=== PATIENT | male | born 1995 | race Caucasian/White ===

== ENCOUNTER 2017-09-02 18:25 | Emergency (ER) | payer SELFPAY ==
[~2017-09-02 18:25] MED LIST: ACCUNEB 0.1.25 MG/1 INH; AMOXICILLIN500 M2 PO; AUGMENTIN 400 M1 CTB PO; BROMFED DM; CELEXA; CETIRIZINE10 MG PO; CLARITIN10 MG PO; DELTASONE10 MG PO; HYDROCODONE BIT1 T11 PO; KEFLEX500 MG PO; KENALOG 0.1%80 GM T; MEDROL DOSEPAK4 MG PO; NASONEX0.05 MG/AC; NKHM; PROAIR HFA0.09 MG/AC; QVAR; SINGULAIR10 MG PO; UNKNOWN INHALER; ZITHROMAX Z PA250 MG PO; ZITHROMAX250 MG PO
[2017-09-02 18:27] VITALS: BP 125/89
[2017-09-02] MEDS ORDERED: ELIMITE 5%60 GM T (19:07)
== END 2017-09-02 19:07 | disposition home or self-care (01) ==
LOC: ED 18:25
DX: B86 Scabies (principal); F17.200 Nicotine dependence, unspecified, uncomplicated

== ENCOUNTER 2019-04-27 19:40 | Emergency (ER) | payer OTHER ==
[~2019-04-27] VITALS: Wt 63.5 kg
[~2019-04-27 19:40] MED LIST changes: +ELIMITE 5%60 GM T
[2019-04-27 19:42] VITALS: BP 127/80
== END 2019-04-27 20:20 | disposition home or self-care (01) ==
LOC: ED 19:40
DX: S61.012A Laceration without foreign body of left thumb without damage to nail, initial encounter (principal); Z23 Encounter for immunization; W26.0XXA Contact with knife, initial encounter; Y93.89 Activity, other specified; Y92.89 Other specified places as the place of occurrence of the external cause; Y99.8 Other external cause status

== ENCOUNTER 2020-01-21 10:27 | Emergency (ER) | payer OTHER ==
[~2020-01-21] VITALS: Wt 56.7 kg
[2020-01-21 10:42] VITALS: BP 128/84
[2020-01-21] MEDS ORDERED: PREDNISONE50 MG PO (11:03)
[2020-01-21] MEDS ORDERED: FLONASE ALLERG9.9 ML NAS (11:03)
== END 2020-01-21 11:20 | disposition home or self-care (01) ==
LOC: ED 10:27
DX: J30.2 Other seasonal allergic rhinitis (principal)

== ENCOUNTER 2021-01-05 21:53 | Emergency (ER) | payer OTHER ==
[~2021-01-05] VITALS: Ht 167.6 cm; Wt 63.5 kg
[~2021-01-05 21:53] MED LIST changes: +FLONASE ALLERG9.9 ML NAS; +PREDNISONE50 MG PO
[2021-01-05 21:56] VITALS: BP 118/79
== END 2021-01-06 01:32 | disposition home or self-care (01) ==
LOC: ED 21:53
DX: J30.2 Other seasonal allergic rhinitis (principal)

== ENCOUNTER 2022-02-09 12:33 | Emergency (ER) | payer OTHER ==
[~2022-02-09] VITALS: Ht 167.6 cm; Wt 65.8 kg
[2022-02-09 12:41] VITALS: BP 113/71
[2022-02-09] MEDS ORDERED: TOBRAMYCIN 5 ML5 M2 OPH (13:58)
== END 2022-02-09 14:10 | disposition home or self-care (01) ==
LOC: ED 12:33
DX: S05.02XA Injury of conjunctiva and corneal abrasion without foreign body, left eye, initial encounter (principal); S05.01XA Injury of conjunctiva and corneal abrasion without foreign body, right eye, initial encounter; W22.8XXA Striking against or struck by other objects, initial encounter; Y93.89 Activity, other specified; Y92.89 Other specified places as the place of occurrence of the external cause; Y99.8 Other external cause status

== ENCOUNTER 2023-01-03 21:03 | Emergency (ER) | payer OTHER ==
[~2023-01-03] VITALS: Ht 175.2 cm; Wt 56.7 kg
[~2023-01-03 21:03] MED LIST changes: +TOBRAMYCIN 5 ML5 M2 OPH
[2023-01-03 21:20] VITALS: BP 117/79
== END 2023-01-03 22:26 | disposition home or self-care (01) ==
LOC: ED 21:03
DX: J30.2 Other seasonal allergic rhinitis (principal); H57.89 Other specified disorders of eye and adnexa; F41.9 Anxiety disorder, unspecified; Z98.890 Other specified postprocedural states

== ENCOUNTER 2023-01-16 17:54 | Emergency (ER) | payer OTHER ==
[~2023-01-16] VITALS: Ht 167.6 cm; Wt 56.7 kg
[2023-01-16 18:21] VITALS: BP 119/82
== END 2023-01-16 21:27 | disposition left against medical advice (07) ==
LOC: ED 17:54
DX: J30.1 Allergic rhinitis due to pollen (principal); F41.9 Anxiety disorder, unspecified; Z98.890 Other specified postprocedural states

== ENCOUNTER 2024-01-02 18:30 | Emergency (ER) | payer SELFPAY ==
[~2024-01-02] VITALS: Ht 167.6 cm; Wt 54.4 kg
[2024-01-02 18:53] VITALS: BP 104/77
[2024-01-02] MEDS ORDERED: ZYRTEC ALLERGY10 MG PO (19:15)
[2024-01-02] MEDS ORDERED: FLONASE ALLERG9.9 ML NAS (19:15)
== END 2024-01-02 19:33 | disposition home or self-care (01) ==
LOC: ED 18:30
DX: J30.2 Other seasonal allergic rhinitis (principal); Z91.048 Other nonmedicinal substance allergy status; Z79.2 Long term (current) use of antibiotics

== ENCOUNTER 2024-08-14 16:52 | Emergency (ER) | payer SELFPAY ==
[~2024-08-14] VITALS: Ht 167.6 cm; Wt 52.2 kg
[~2024-08-14 16:52] MED LIST changes: +ZYRTEC ALLERGY10 MG PO
[2024-08-14] MEDS ORDERED: MORPHINE Sulfate 2 MG/ML SYR IM ONE (17:30)
[2024-08-14] MEDS ORDERED: Ketorolac Tromethamine 60 MG/2 ML VIAL IM ONE (20:00)
[2024-08-14] MEDS ORDERED: METHOCARBAMOL 500 MG TAB PO ONE (20:00)
[2024-08-14] MEDS ORDERED: NAPROXEN250 MG PO (20:03)
[2024-08-14] MEDS ORDERED: METHOCARBAMOL500 M1 PO (20:03)
[2024-08-14 20:20] VITALS: BP 126/73
== END 2024-08-14 20:11 | disposition home or self-care (01) ==
LOC: ED 16:52
DX: S39.012A Strain of muscle, fascia and tendon of lower back, initial encounter (principal); M79.604 Pain in right leg; F41.9 Anxiety disorder, unspecified; Z88.8 Allergy status to other drugs, medicaments and biological substances; Z98.890 Other specified postprocedural states; W19.XXXA Unspecified fall, initial encounter; Y93.89 Activity, other specified; Y92.89 Other specified places as the place of occurrence of the external cause; Y99.8 Other external cause status

== ENCOUNTER 2025-01-01 18:50 | Emergency (ER) | payer SELFPAY ==
[~2025-01-01] VITALS: Ht 167.6 cm; Wt 51.5 kg
[~2025-01-01 18:50] MED LIST changes: +METHOCARBAMOL500 M1 PO; +NAPROXEN250 MG PO
[2025-01-01 19:37] VITALS: BP 105/66
[2025-01-01] MEDS ORDERED: ACETAMINOPHEN 325 MG TAB PO ONE (19:45)
== END 2025-01-01 20:53 | disposition home or self-care (01) ==
LOC: ED 18:50
DX: J02.9 Acute pharyngitis, unspecified (principal); F41.9 Anxiety disorder, unspecified; Z20.822 Contact with and (suspected) exposure to COVID-19; Z79.899 Other long term (current) drug therapy; Z98.890 Other specified postprocedural states